=== PATIENT | male | born 1930 | race Caucasian/White ===

== ENCOUNTER 2017-05-07 19:40 | Emergency (ER) | payer OTHER ==
[~2017-05-07] VITALS: Ht 180.3 cm; Wt 86.2 kg
[~2017-05-07 19:40] MED LIST: LACT10SY PO; MULVITA
[2017-05-07] MEDS ORDERED: THYROID MEDICINE (20:05)
== END 2017-05-07 22:24 | disposition home or self-care (01) ==
LOC: ER 19:40
DX: S60.221A Contusion of right hand, initial encounter (principal); S00.81XA Abrasion of other part of head, initial encounter; Z88.2 Allergy status to sulfonamides; Z79.899 Other long term (current) drug therapy; W18.30XA Fall on same level, unspecified, initial encounter
CPT/HCPCS: 70450; 72125; 73130; 99284